=== PATIENT | female | born 1970 | race African-American/Black ===

== ENCOUNTER 2017-10-28 05:23 | Emergency (ER) | payer BC, OTHER ==
[~2017-10-28] VITALS: Ht 152.4 cm; Wt 96.2 kg
[2017-10-28 06:52] LABS: Urine WBC None Seen /hpf (0 - 5)
[2017-10-28 07:11] LABS: Urine Bacteria NONE SEEN /hpf (None Seen); Urine Blood Negative /uL (Negative); Urine Mucus FEW (None Seen); Urine Specific Gravity 1.013 (1.001-1.035)
[2017-10-28 09:50] VITALS: BP 129/88
[2017-10-28] MEDS ORDERED: SODIUM CHLORIDE 0.9% 500 ML IV ONE (10:17)
[2017-10-28] MEDS ORDERED: DEXAMETHASONE SOD PHOS 4 MG/1ML SDV INJ IV ONE (10:30)
[2017-10-28] MEDS ORDERED: KETOROLAC TROMETH 30 MG/ML 1ML VIAL IV ONE (10:30)
[2017-10-28] MEDS ORDERED: METOCLOPRAMIDE HCL 5MG/ml INJ 2ml VIAL IV ONE (10:30)
== END 2017-10-28 12:33 | disposition home or self-care (01) ==
LOC: ER 05:26
DX: M62.838 Other muscle spasm (principal); G89.29 Other chronic pain; M54.9 Dorsalgia, unspecified; R07.0 Pain in throat; Z90.49 Acquired absence of other specified parts of digestive tract
CPT/HCPCS: 70490; 81001; 81025; 96374; 96375; 99285; J1100; J1885; J2765; J7030